=== PATIENT | male | born 2000 | race Hispanic/Latino ===

== ENCOUNTER 2020-05-17 14:57 | Emergency (ER) | payer OTHER ==
[2020-05-19 16:00] LABS: SARS-CoV-2 MS2 Positive; SARS-CoV-2 N Gene Positive; SARS-CoV-2 S Gene Positive; SARS-CoV-2 orf1ab Positive
== END 2020-05-17 15:50 | disposition home or self-care (01) ==
LOC: NAV ERS 14:57
DX: U07.1 COVID-19 (principal); J45.909 Unspecified asthma, uncomplicated; Z79.51 Long term (current) use of inhaled steroids
CPT/HCPCS: 87635; 99283; U0003

== ENCOUNTER 2024-10-21 23:16 | Emergency (ER) | payer BC, OTHER | END 2024-10-22 00:10 | disposition home or self-care (01) | LOC: NAV ERS 23:16 | DX: L98.9 Disorder of the skin and subcutaneous tissue, unspecified (principal) | CPT/HCPCS: 99283 ==